=== PATIENT | female | born 1990 | race Caucasian/White ===

== ENCOUNTER 2016-10-03 02:34 | Inpatient (IN) | payer OTHER ==
[2016-10-03] VITALS (114 sets, daily range): BP systolic 102–150; BP diastolic 50–84; PULSE 52–107; RESP 14–20; TEMP 97.8–98.6
[~2016-10-03] VITALS: Ht 165.1 cm; Wt 87.5 kg
[~2016-10-03 02:34] MED LIST: FERR200T PO
--- NOTE | 2016-10-03 03:29 | PD ---
HPI Chief Complaint LOF Date Seen: October 03, 2016 Time Seen: 03:27 Travel History International Travel<30 Days: No Contact w/Intl Traveler<30Days: No Known Affected Area: No History of Present Illness HPI 39y/o , IUP at 42.0 records reviewed, PNC complicated by: AMA, anemia, postterm Patient presents c/o large gush of clear fluid at 1:15am, she reports it was clear and has continued to leak. There were no aggravating or alleviating factors. She denies any painful ctx or VB. She reports normal FM. Para: 1 : 2 Miscarriage: 0 : 0 History Past Medical History Narrative Medical Anemia Ulcers Migraine TRAORE Obstetric History Obstetric History FT x1, 8#9oz without complication except PPH Menarche at 13-14 Menese q month Denies abnl PAP or STDs Past Surgical History Surgical History: No Previous Surgery Family History Narrative Family History HTN Anemia Social History Narrative Social History Reports has d/c tobacco Alcohol Use: No Tobacco Use: Yes Substance Abuse: No Allergies-Medications (Allergen,Severity, Reaction): Coded Allergies: Macrobid (Verified Allergy, Severe, SEVERE RASH, 09/14/16) Zofran (Verified Allergy, Intermediate, TWICHING, 10/03/16) Home Meds Active Scripts Ferrous Sulfate (Feosol)200 Mg [id number] Mg PO DAILY #90 TAB Ref 0 Prov:Jerel Simental MD 07/20/16 Reported Medications Vit-Iron Carbonyl ( Plus Iron 29-1 mg)1 Tab Tab1 Tab PO DAILY #30 TAB Ref 0 10/03/16 Review of Systems General / Constitutional: No: Fever, Weight Gain, Weight Loss, Chills, Other Eyes: No: Diploplia, Blurred Vision, Visual changes, Pain, Photophobia, Other HENT: No: Headaches, Vertigo, Dental Difficulties, Lightheadedness, Other Cardiovascular: No: Irregular Rhythm, Chest Pain or Discomfort, Palpitations, Tachycardia, Syncope, Varicosities, Edema, Cyanosis, Other Respiratory: No: Cough, Short of Breath, Wheezing, Other Gastrointestinal: No: Nausea, Vomiting, Diarrhea, Abdominal Pain, Hematemesis, Hematochezia, Constipation, Changes in Bowel Habits, Indigestion, Loss of Appetite, Other Genitourinary: No: Urgency, Frequency, Dysuria, Nocturia, Hematuria, Decreased Urinary Output, Oliguria, Hesitancy, Dribbling, Incontinence, Pelvic Pain, Dyspareunia, Discharge, Menorrhagia, Vaginal Bleeding, Other Musculoskeletal: No: Limited ROM, Weakness, Cramping, Edema, Pain, Other Skin: No Rash, No Itching, No Dryness, No Lumps, No Change in Pigmentation, No Change in Nails, No Alopecia, No Lesions, No Breast Lumps, No Breast Tenderness , No Breast Swelling, No Other Neurologic: No: Weakness, Dizziness, Syncope, Focal Abnormalities, Coordination Problem, Headache, Slurred Speech, Seizures, Other Psychiatric: No: Anxiety, Depression, Suicidal Ideations, Disorder of Thought, Mood Disorder, Substance Abuse, Homicidal Ideation, Other Endocrine: No: Heat Intolerance, Cold Intolerance, Polydipsia, Polyuria, Other Hematologic/Lymphatic: No Easy Bruising, No Lymph Node Enlargement, No Other Physical Exam VSS AF Narrative GENERAL: Well-nourished, well-developed patient. SKIN: Warm and dry. HEAD: Normocephalic and atraumatic. EYES: No scleral icterus. No injection or drainage. ENT: No nasal drainage noted. Mucous membranes pink. Airway patent. NECK: Supple, trachea midline. No JVD. CARDIOVASCULAR: Regular rate and rhythm without murmurs, gallops, or rubs. RESPIRATORY: Breath sounds equal bilaterally. No accessory muscle use. BREASTS: Bilateral exam showed no masses , no retractions, no nipple discharge. ABDOMEN/GI: Abdomen soft, non-tender, bowel sounds present, no rebound, no guarding Gravid GENITOURINARY: External Genitalia: intact and normal in appearance BUS glands:normal Cervix: posterior, no cervical/vaginal masses noted, normal rugae, grossly rom/clear, pelvis adequate Dilatation:3 Effacement:50 Station: -3 Presentation: cephalic Membranes: [ruptured] Uterine Contractions: [irregular] FHT's: Category: [1] Baseline: [120s] Reactive: [y] Variability: [moderate] Decels: [no], good accels EXTREMITIES: No cyanosis or edema. BACK: Nontender without obvious deformity. No CVA tenderness. NEUROLOGICAL: Awake and alert. Motor and sensory grossly within normal limits. Five out of 5 muscle strength in all muscle groups. Normal speech. Psych grossly normal MS grossly normal ROM, gait, muscle strength Data Data Vital Signs Reviewed: Yes Orders Ob (2e) Additional Admit Info (10/03/16 03:03) Labs labs: missing blood type, recent RPR or Rubella HIV neg HbSAg neg 1h 85 GC/Chlam neg GBS neg MDM Medical Record Reviewed: Yes Plan A/P: 39y/o 1. IUP at 42.0 2. PROM: patient presents grossly ROM. Will admit to L&D. Discussed IOL vs expectant management with RBA of each, patient in agreement with active management and IOL with oxytocin. Discussed risks of , risks/indications of C /S. Patient in agreement with interventions as needed. Discussed participation in [facility] and all questions answered. 3. RPR, Rubella: will order updated testing 4. AMA 5. Anemia with h/o PPH: patient aware of risk of transfusion and in agreement if indicated 6. GBS neg 7. Will order blood type as not in records. Diagnosis Diagnosis: Primary Impression: PROM (premature rupture of membranes) Additional Impression: Post-term with 40-42 completed weeks of gestation Condition: Valery Meade MD October 03, 2016 03:29
[2016-10-03] MEDS ORDERED: PREN29TA PO (03:44)
[2016-10-03] MEDS ORDERED: CITRIC ACID-SODIUM CITRATE LIQ 30 ML UDC PO SCH (04:00)
[2016-10-03] MEDS ORDERED: MINERAL OIL 10 ML VIAL TOPICAL PRN (04:00)
[2016-10-03] MEDS ORDERED: LIDOCAINE HCL 1% 50 ML VIAL I-DERMAL PRN (04:00)
[2016-10-03] MEDS ORDERED: SODIUM CHLORID 0.9% 500 ML INJ 500 ML IV PRN (04:00)
[2016-10-03] MEDS ORDERED: OXYTOCIN 30 UNITS-500ML PREMIX 500 ML IV ONE (04:00)
[2016-10-03] MEDS ORDERED: LIDOCAINE HCL 1% 50 ML VIAL INFIL PRN (04:00)
[2016-10-03] MEDS ORDERED: SODIUM CHLOR 0.9% 1000 ML INJ 1,000 ML IV PRN (04:13)
[2016-10-03] MEDS: LACTATED RINGER'S 1000 ML INJ 1,000 ML IV SCH (04:15)
[2016-10-03] MEDS: LACTATED RINGER'S 1000 ML INJ 1,000 ML IV PRN ×3 (04:15→11:07)
[2016-10-03 04:31] LABS: BACTERIA, URINE MOD /hpf; BLOOD, URINE TRACE (NEG); COMMENT (UR) CULTURE INDICATED; CULTURE IF INDICATED CULTURE INDICATED; GLUCOSE,URINE NEG (NEG); KETONE, URINE NEG (NEG); MUCUS URINE FEW /lpf (OCC); NITRITE,URINE NEG (NEG); SQUAMOUS EPITHELIAL CELL URINE 50 /hpf (0-5); URINE COLOR LIGHT-YELLOW (YELLW/STRAW)
[2016-10-03 04:37] LABS: AUTOMATED NEUTROPHIL # 6.8 TH/MM3 (1.8-7.7); BASOPHIL % 0.4 % (0.0-2.0); EOSINOPHIL % 0.4 % (0.0-4.0); HEMATOCRIT 27.7 % (35.0-46.0); LYMPH % 16.2 % (9.0-44.0); LYMPHOCYTE # 1.5 TH/MM3 (1.0-4.8); MEAN CELL VOLUME 69.3 FL (80.0-100.0); MEAN CORPUSCULAR HEMOGLOBIN 21.6 PG (27.0-34.0); MEAN CORPUSCULAR HGB CONC 31.1 % (32.0-36.0); MONO % 8.7 % (0.0-8.0); NEUT % 74.3 % (16.0-70.0); PLATELET COUNT 193 TH/MM3 (150-450); WHITE BLOOD COUNT 9.1 TH/MM3 (4.0-11.0)
[2016-10-03 04:39] LABS: HEMO FLAGS AUTO DIFF
[2016-10-03] MEDS ORDERED: OXYTOCIN 30 UNITS-500ML PREMIX 500 ML IV SCH (05:00)
[2016-10-03 05:10] LABS: RUBELLA IGG ANTIBODY 45.2 IU/mL (10.0-500.0); RUBELLA STATUS IMMUNE (IMMUNE)
[2016-10-03] MEDS ORDERED: fentaNYL 2MCG-BUPIV 0.125% INJ 100 ML ONE (05:48)
[2016-10-03] MEDS ORDERED: ePHEDrine/NS 25 MG/5 ML SYR ONE (05:49)
[2016-10-03] MEDS ORDERED: ePHEDrine/NS 25 MG/5 ML SYR IV PRN (06:30)
[2016-10-03] MEDS ORDERED: NO SYSTEM NARCOTICS PRN (06:30)
[2016-10-03] MEDS ORDERED: fentaNYL 2MCG-BUPIV 0.125% 100 ML EPIDURAL SCH (06:30)
[2016-10-03] MEDS ORDERED: DO NOT ADMINISTER ANTICOAGULANTS PRN (06:30)
--- NOTE | 2016-10-03 06:59 | PD.LABORPN ---
Subjective Subjective Ms. Viveros reports that she is doing well after epidural placement at ~0600. No complaints at this time. Objective Vital Signs Vital Signs Date Time Temp Pulse Resp B/P Pulse Ox O2 Delivery O2 Flow Rate FiO2 10/03/16 06:20 70 10/03/16 06:20 71 125/59 10/03/16 06:20 18 10/03/16 06:16 75 116/60 10/03/16 06:15 74 10/03/16 06:10 75 10/03/16 06:10 113/69 10/03/16 06:10 81 10/03/16 06:05 72 10/03/16 06:05 70 125/78 10/03/16 06:04 18 10/03/16 06:03 66 118/72 10/03/16 06:00 68 10/03/16 05:48 18 10/03/16 05:00 18 10/03/16 04:58 72 111/62 10/03/16 04:24 18 10/03/16 04:20 70 122/72 Objective Pelvic Exam: Last exam by Dr. Peralta (10/03) Cervix: Dilatation: 3cm Effacement: 50% Station: -2 Vertex Membranes: Ruptured Uterine Contractions: q3min FHT's: Category: 1 Baseline: 130 Reactive: Y Variability: Mod Decels: None Assessment/Plan Problem List: (1) Post-term infant with 40-42 completed weeks of gestation Assessment and Plan 39y/o at 42 weeks GA -Continue to monitor EFM -Continue labor augmentation with Pitocin -Monitor labs as resulted -Blood type A+ -RPR pending -Caution regarding risk of PPH / worsening anemia per Dr. Peralta's note Joshua Schroeder MD R2 October 03, 2016 06:59
[2016-10-03 07:08] LABS: PLATELET ESTIMATE SMEAR NORMAL (NORMAL); PLATELET MORPHOLOGY ENLARGED (NORMAL); SCAN/DIFF AUTO DIFF CONFIRMED
--- NOTE | 2016-10-03 09:14 | PD.LABORPN ---
Subjective Subjective S: comfortable with epidural O: VSS AF FHT: 120s, moderate LTV, good accels, no repetitive decels [place]: q 3 min SVE: 4-5/60/-2 at 0830 A/OP: 1. IUP at 42.0 2. PROM: continue oxytocin 3. GBS neg 4. Anemia, Hgb 8.6 5. FHR reassuring, continue close EFM Objective Vital Signs Vital Signs Date Time Temp Pulse Resp B/P Pulse Ox O2 Delivery O2 Flow Rate FiO2 10/03/16 08:45 58 10/03/16 08:45 58 123/65 10/03/16 08:40 58 10/03/16 08:35 61 10/03/16 08:31 57 118/50 10/03/16 08:30 58 10/03/16 08:25 55 10/03/16 08:20 66 10/03/16 08:15 70 10/03/16 08:15 58 126/64 10/03/16 08:10 61 10/03/16 08:05 66 10/03/16 08:01 101 10/03/16 08:01 102/75 10/03/16 08:00 83 10/03/16 07:55 65 10/03/16 07:50 74 10/03/16 07:45 72 121/75 10/03/16 07:45 67 10/03/16 07:40 96 10/03/16 07:35 70 10/03/16 07:30 65 137/72 10/03/16 07:30 65 10/03/16 07:25 67 10/03/16 07:20 63 10/03/16 07:16 66 121/66 10/03/16 07:15 62 10/03/16 07:10 63 10/03/16 07:05 60 10/03/16 07:01 56 124/66 10/03/16 07:00 98.1 53 10/03/16 07:00 18 10/03/16 06:56 54 10/03/16 06:56 139/73 10/03/16 06:55 56 10/03/16 06:50 101 10/03/16 06:46 80 126/60 10/03/16 06:45 69 10/03/16 06:45 18 10/03/16 06:40 66 10/03/16 06:39 65 143/75 10/03/16 06:35 73 10/03/16 06:33 73 150/76 10/03/16 06:30 84 10/03/16 06:25 73 10/03/16 06:20 70 10/03/16 06:20 71 125/59 10/03/16 06:20 18 10/03/16 06:16 75 116/60 10/03/16 06:15 74 10/03/16 06:10 75 10/03/16 06:10 113/69 10/03/16 06:10 81 10/03/16 06:05 72 10/03/16 06:05 70 125/78 10/03/16 06:04 18 10/03/16 06:03 66 118/72 10/03/16 06:00 68 10/03/16 05:48 18 10/03/16 05:00 18 10/03/16 04:58 72 111/62 10/03/16 04:24 18 10/03/16 04:20 70 122/72 Objective Pelvic Exam: Cervix: [-] Dilatation: [-] Effacement: [-] Station: [-] Presentation: [-] Membranes: [intact or ruptured] Uterine Contractions: [-] FHT's: Category: [-] Baseline: [-] Reactive: [-] Variability: [-] Decels: [-] Assessment/Plan Problem List: (1) Post-term infant with 40-42 completed weeks of gestation Valery Peralta MD October 03, 2016 09:14
--- NOTE | 2016-10-03 13:14 | PD.OB.DELI ---
Anesthesia: Epidural Episiotomy: None Vaginal Delivery: Normal Presentation: Occiput anterior Nuchal Cord: x2 Delayed cord clamping (45 sec): No : Male One Minute : 8 Five Minute : 9 Weight: 3379 gm Placenta: Spontaneous delivery, Intact Laceration: No lacerations Additional Information tight nuchal cord times 2 cut on perineum Doroteo Bucio II, MD October 03, 2016 13:14
[2016-10-03] MEDS ORDERED: ACETAMINOPHEN 325 MG TAB PO PRN (13:15)
[2016-10-03] MEDS ORDERED: WITCH HAZEL 50%/GLYCERIN 12.5% 40 PAD JAR TOPICAL PRN (13:15)
[2016-10-03] MEDS ORDERED: DOCUSATE SODIUM 50 MG/SENNA 8.6 MG TAB PO PRN (13:15)
[2016-10-03] MEDS ORDERED: SODIUM CHLORIDE 0.9% FLUSH 10 ML FLUSH IV FLUSH PRN (13:15)
[2016-10-03] MEDS ORDERED: ONDANSETRON ODT 4 MG TAB PO PRN (13:15)
[2016-10-03] MEDS ORDERED: BENZOCAINE 20% TOPICAL SPRAY 60 ML CAN TOPICAL PRN (13:15)
[2016-10-03] MEDS ORDERED: oxyCODONE/ACETAMINOPHEN 5 MG/325 MG TAB PO PRN (13:15)
[2016-10-03] MEDS ORDERED: ALUMINUM/MAGNESIUM/SIMETH 30 ML CUP PO PRN (13:15)
[2016-10-03 14:12] LABS: RAPID PLASMA REAGIN SCREEN NON-REACTIVE (NON-REACTVE)
[2016-10-03] MEDS ORDERED: DIPHTH/TETANUS/ACEL PERTUSSIS (BOOSTER) 0.5 ML VIAL/PFS IM ONE (16:00)
[2016-10-03] MEDS ORDERED: MEASLES, MUMPS, RUBELLA VACCINE 0.5 ML VIAL SQ ONE (16:00)
[2016-10-03] MEDS ORDERED: SODIUM CHLORIDE 0.9% FLUSH 10 ML FLUSH IV FLUSH SCH (21:00)
[2016-10-03] MEDS ORDERED: ZOLPIDEM TARTRATE 5 MG TAB PO PRN (21:00)
[2016-10-04] MEDS: IBUPROFEN 600 MG TAB PO PRN ×3 (00:54→18:53)
--- NOTE | 2016-10-04 07:17 | HHI.OB ---
Subjective Post Day: 1 Remarks day #1. AFVSS overnight. Pain minimal. Decreased lochia. Denies dysuria. No breast tenderness. She is feeding the baby via breast. Appetite good. No nausea or vomiting. Endorses flatus. No bowel movement. Ambulating well. Denies calf pain, shortness of breath, or cough. Otherwise, she is doing well this morning and has no other complaints. Objective Vitals/I&O Vital Signs Date Time Temp Pulse Resp B/P Pulse Ox O2 Delivery O2 Flow Rate FiO2 10/03/16 20:30 97.9 65 18 115/71 10/03/16 15:49 98.3 59 14 106/68 10/03/16 14:52 97.8 10/03/16 14:46 55 123/64 10/03/16 14:30 52 122/71 10/03/16 14:30 18 10/03/16 14:15 55 108/72 10/03/16 14:01 113/51 10/03/16 14:01 53 10/03/16 13:45 58 112/75 10/03/16 13:31 55 113/63 10/03/16 13:30 18 10/03/16 13:16 69 112/84 10/03/16 13:15 18 10/03/16 13:15 98.1 10/03/16 13:00 20 10/03/16 13:00 70 125/64 10/03/16 12:46 107 111/71 10/03/16 12:45 91 10/03/16 12:35 71 10/03/16 12:30 78 120/72 10/03/16 12:25 71 10/03/16 12:20 95 10/03/16 12:16 62 123/83 10/03/16 12:10 59 10/03/16 12:10 18 10/03/16 12:05 54 10/03/16 12:01 61 131/77 10/03/16 12:00 62 10/03/16 12:00 18 10/03/16 11:55 56 10/03/16 11:50 55 10/03/16 11:45 53 130/77 10/03/16 11:45 64 10/03/16 11:40 57 10/03/16 11:35 61 10/03/16 11:30 60 10/03/16 11:30 76 124/79 10/03/16 11:25 67 10/03/16 11:20 62 10/03/16 11:16 53 108/51 10/03/16 11:15 58 10/03/16 11:10 62 10/03/16 11:05 62 10/03/16 11:01 67 107/54 10/03/16 11:00 69 10/03/16 11:00 98.6 19 10/03/16 10:55 63 10/03/16 10:50 62 10/03/16 10:45 62 120/77 10/03/16 10:45 62 10/03/16 10:40 62 10/03/16 10:35 86 10/03/16 10:31 101 117/69 10/03/16 10:30 72 10/03/16 10:25 65 10/03/16 10:20 68 10/03/16 10:15 64 116/71 10/03/16 10:15 68 10/03/16 10:10 63 10/03/16 10:05 59 10/03/16 10:00 18 10/03/16 10:00 58 120/72 10/03/16 10:00 61 10/03/16 09:55 77 10/03/16 09:50 57 10/03/16 09:45 54 10/03/16 09:45 58 130/69 10/03/16 09:40 58 10/03/16 09:35 66 10/03/16 09:30 60 10/03/16 09:30 72 122/65 10/03/16 09:25 58 10/03/16 09:20 59 10/03/16 09:15 98.3 18 10/03/16 09:15 68 120/73 10/03/16 09:15 63 10/03/16 09:10 63 10/03/16 09:05 62 10/03/16 09:00 98.3 18 10/03/16 09:00 58 10/03/16 09:00 61 117/62 10/03/16 08:55 62 10/03/16 08:50 66 10/03/16 08:45 58 10/03/16 08:45 58 123/65 10/03/16 08:40 58 10/03/16 08:35 61 10/03/16 08:31 57 118/50 10/03/16 08:30 58 10/03/16 08:25 55 10/03/16 08:20 66 10/03/16 08:15 70 10/03/16 08:15 58 126/64 10/03/16 08:10 61 10/03/16 08:05 66 10/03/16 08:01 101 10/03/16 08:01 102/75 10/03/16 08:00 18 10/03/16 08:00 83 10/03/16 07:55 65 10/03/16 07:50 74 10/03/16 07:45 72 121/75 10/03/16 07:45 67 10/03/16 07:40 96 10/03/16 07:35 70 10/03/16 07:30 65 137/72 10/03/16 07:30 65 10/03/16 07:25 67 10/03/16 07:20 63 10/03/16 07:16 66 121/66 Objective Remarks GENERAL: Well-nourished, well-developed patient. CARDIOVASCULAR: Regular rate and rhythm without murmurs, gallops, or rubs. RESPIRATORY: Breath sounds equal bilaterally. No accessory muscle use. ABDOMEN/GI: Abdomen soft, non-tender. Fundus: Firm, non-tender at umbilicus. GENITOURINARY: Light bleeding. EXTREMITIES: No cyanosis or edema, non-tender, without signs of DVT. Medications and IVs Current Medications Medications (Trade) Dose Ordered Sig/Willis Route Start Time Stop Time Status Last Admin Lactated Ringer's 1,000 ml @ 125 mls/hr Q8H IV 10/03/16 03:53 10/03/16 04:15 Lactated Ringer's 1,000 ml @ 3,000 mls/hr Q20M PRN IV 10/03/16 03:53 10/03/16 11:07 Sodium Chloride 500 ml @ 1,000 mls/hr ONCE PRN IV 10/03/16 04:00 10/05/16 03:59 (NS 1000 ml Inj) 1,000 ml @ 100 mls/hr Q10H PRN IV 10/03/16 04:13 10/03/16 11:07 (fentaNYL INJ) 50 mcg Q1H PRN IV PUSH 5/8/17 04:00 (fentaNYL INJ) 100 mcg Q1H PRN IV PUSH 10/03/16 04:00 Mineral Oil 10 ml 10 ml UNSCH PRN TOPICAL 10/03/16 04:00 Oxytocin 500 ml @ 0 mls/hr TITRATE IV 10/03/16 05:00 10/03/16 04:18 (fentaNYL 2MCG-BUPIV 0.125% INJ) 100 ml @ 0 mls/hr TITRATE EPIDURAL 10/03/16 06:30 10/03/16 12:10 (NS Flush) 2 ml BID IV FLUSH 10/03/16 21:00 (NS Flush) 2 ml UNSCH PRN IV FLUSH 10/03/16 13:15 (Tylenol) 650 mg Q4H PRN PO 10/03/16 13:15 10/03/16 17:50 (Motrin) 600 mg Q6H PRN PO 10/03/16 13:15 10/04/16 00:54 (Percocet 5-325 Mg) 1 tab Q4H PRN PO 10/03/16 13:15 (Americaine 20% Top Spr) 1 spray Q4H PRN TOPICAL 10/03/16 13:15 (Tucks Pads) 1 applic QID PRN TOPICAL 10/03/16 13:15 (La-Colace) 2 tab Q12H PRN PO 10/03/16 13:15 (Ambien) 5 mg HS PRN PO 10/03/16 21:00 (Mag-Al Plus Susp Liq) 15 ml Q8H PRN PO 10/03/16 13:15 Assessment/Plan Problem List: (1) Post-term with 40-42 completed weeks of gestation Assessment and Plan 25y/o who is PPD#1 s/p . -Continue routine care. -Percocet and Motrin PRN pain. -Encouraged OOB. Advised pelvic rest for 6 wks. -Will need a f/u appt. within 6 wks. -D/c in 1-2 more days. Patrice Anderson MD R1 October 04, 2016 07:17
[2016-10-04 08:00] VITALS: BP 115/63; PULSE 66; RESP 18; TEMP 98.1
[2016-10-04 19:41] VITALS: BP 123/68; PULSE 76; RESP 16; TEMP 98.8
[2016-10-05] MEDS: LACTATED RINGER'S 1000 ML INJ 1,000 ML IV SCH ×2 (03:53→07:26)
[2016-10-05] MEDS: IBUPROFEN 600 MG TAB PO PRN (04:09)
[2016-10-05] MEDS ORDERED: SENN1TAB PO (07:15)
[2016-10-05] MEDS ORDERED: IBUP-232 PO (07:15)
--- NOTE | 2016-10-05 07:15 | HHI.DCPOC ---
Discharge Care Plan Diagnosis: (1) PROM (premature rupture of membranes) (2) Post-term with 40-42 completed weeks of gestation Report Symptoms to Your Doctor -Temperate above 100.5 degrees -Redness, of incision or excessive or foul smelling drainage -Unusual pain or calf pain -Increased vaginal bleeding -Painful or difficulty urinating -Feelings of extreme sadness or anxiety after 2 weeks Goals to Promote Your Health * To prevent worsening of your condition and complications * To maintain your health at the optimal level Directions to Meet Your Goals Take your medications as prescribed Follow your dietary instruction Follow activity as directed Ensure plenty of rest for recovery Drink fluids for hydration Keep your appointments as scheduled Take your immunizations and boosters as scheduled If your symptoms worsen call your PCP, if no PCP go to Urgent Care Center or Emergency Room Smoking is Dangerous to Your Health. Avoid second hand smoke Call the 24-hour crisis hotline for domestic abuse at Patrice Anderson MD R1 October 05, 2016 07:15
--- NOTE | 2016-10-05 07:19 | HHI.OB ---
Subjective Post Day: 2 Remarks day #2. AFVSS overnight. Pain minimal. Decreased lochia. Denies dysuria. No breast tenderness. She is feeding the baby via breast. Appetite good. No nausea or vomiting. Endorses flatus. No bowel movement. Ambulating well. Denies calf pain, shortness of breath, or cough. Otherwise, she is doing well this morning and has no other complaints. (Patrice Anderson MD R1) Objective Vitals/I&O Vital Signs Date Time Temp Pulse Resp B/P Pulse Ox O2 Delivery O2 Flow Rate FiO2 10/04/16 19:41 98.8 76 16 123/68 10/04/16 08:00 98.1 66 18 115/63 Objective Remarks GENERAL: Well-nourished, well-developed patient. CARDIOVASCULAR: Regular rate and rhythm without murmurs, gallops, or rubs. RESPIRATORY: Breath sounds equal bilaterally. No accessory muscle use. ABDOMEN/GI: Abdomen soft, non-tender. Fundus: Firm, non-tender at umbilicus. GENITOURINARY: Light bleeding. EXTREMITIES: No cyanosis or edema, non-tender, without signs of DVT. Medications and IVs Current Medications Medications (Trade) Dose Ordered Sig/Willis Route Start Time Stop Time Status Last Admin Lactated Ringer's 1,000 ml @ 125 mls/hr Q8H IV 10/03/16 03:53 10/03/16 04:15 Lactated Ringer's 1,000 ml @ 3,000 mls/hr Q20M PRN IV 10/03/16 03:53 10/03/16 11:07 (NS 1000 ml Inj) 1,000 ml @ 100 mls/hr Q10H PRN IV 10/03/16 04:13 10/03/16 11:07 (fentaNYL INJ) 50 mcg Q1H PRN IV PUSH 10/03/16 04:00 (fentaNYL INJ) 100 mcg Q1H PRN IV PUSH 10/03/16 04:00 Mineral Oil 10 ml 10 ml UNSCH PRN TOPICAL 10/03/16 04:00 Oxytocin 500 ml @ 0 mls/hr TITRATE IV 10/03/16 05:00 10/03/16 04:18 (fentaNYL 2MCG-BUPIV 0.125% INJ) 100 ml @ 0 mls/hr TITRATE EPIDURAL 10/03/16 06:30 10/03/16 12:10 (NS Flush) 2 ml BID IV FLUSH 10/03/16 21:00 (NS Flush) 2 ml UNSCH PRN IV FLUSH 10/03/16 13:15 (Tylenol) 650 mg Q4H PRN PO 10/03/16 13:15 10/03/16 17:50 (Motrin) 600 mg Q6H PRN PO 10/03/16 13:15 10/05/16 04:09 (Percocet 5-325 Mg) 1 tab Q4H PRN PO 10/03/16 13:15 (Americaine 20% Top Spr) 1 spray Q4H PRN TOPICAL 10/03/16 13:15 (Tucks Pads) 1 applic QID PRN TOPICAL 10/03/16 13:15 (La-Colace) 2 tab Q12H PRN PO 10/03/16 13:15 (Ambien) 5 mg HS PRN PO 10/03/16 21:00 (Mag-Al Plus Susp Liq) 15 ml Q8H PRN PO 10/03/16 13:15 (Patrice Anderson MD R1) Assessment/Plan Problem List: (1) Post-term infant with 40-42 completed weeks of gestation Assessment and Plan 25y/o who is PPD#2 s/p . -Continue routine care. -Percocet and Motrin PRN pain. -Encouraged OOB. Advised pelvic rest for 6 wks. -Will need a f/u appt. within 6 wks. -D/c today (Patrice Anderson MD R1) Attending Attestation The exam, history, and the medical decision-making described in the above note were completed with the assistance of the resident provider. I reviewed and agree with the findings presented. I attest that I had a [id number] encounter with the patient on the same day, and personally performed and documented my assessment and findings in the medical record. (Juan Diane MD) Patrice Anderson MD R1 October 05, 2016 07:19 Juan Diane MD October 05, 2016 08:50
[2016-10-05 07:53] VITALS: BP 125/82; PULSE 74; RESP 18; TEMP 98.2
[2016-11-04] MEDS ORDERED: NORE1CAP PO (09:22)
== END 2016-10-05 13:48 | disposition home or self-care (01) | DRG 775 ==
LOC: HOBED 02:34 → H2EA 03:12 → H1EA 15:08
PROVIDERS: ADMIT Obstetrics & Gynecology; ATTEND Obstetrics & Gynecology
PROC: 10E0XZZ Delivery of Products of Conception, External Approach (ICD-10-PCS; principal; 2016-10-03)
DX: O48.0 Post-term pregnancy (principal); O69.1XX0 Labor and delivery complicated by cord around neck, with compression, not applicable or unspecified; Z37.0 Single live birth; Z3A.42 42 weeks gestation of pregnancy
CPT/HCPCS: 81001; 85025; 86592; 86762; 86850; 86900; 86901; 87086; 90715; 99285; J2590; J3010; J7030; J7120